=== PATIENT | male | born 1995 | race Caucasian/White ===

== ENCOUNTER → 2018-12-10 | Day surgery (SDC) | payer BC ==
[~2018-12-10] MED LIST: FENTANYL CITRATE/PF 100MCG/2 ML INJ ONE; HYOSCYAMINE SULFATE 0.5 MG/ML INJ ONE; MIDAZOLAM HCL 2 MG/2 ML VIAL ONE; PROPOFOL IV EMULSION 10 MG/ML 50 ML VIAL ONE
--- OUTSIDE RECORDS SUMMARY | 2018-12-10 05:33 | XMS REPORT | Encounter Summary ---
Author Organization Unknown Address [address] [place] [address] Phone [phone] Reason for Visit Travel Healthy Instructions 1. Adult health examination 2. Immunization Fluzone Quad (PF) 60 mcg(15 mcgx4)/0.5 mL intramuscular syringe 3. Foreign travel education Discussion Note: None recorded. Patient educational handouts: No information available. Plan of Care Patient Instructions follow up pcp with any concerns. Reminders Provider Appointments None recorded. Lab None recorded. Referral None recorded. Procedures None recorded. Surgeries None recorded. Imaging None recorded. Medications None recorded. Medications Administered None recorded. Vitals Height Weight BMI Blood Pressure 6 ft 2 in 175 lbs 22.5 kg/m2 110/70 mm[Hg] Lab Results None recorded. Allergies Code Code System Name Reaction Severity Onset NKDA Problems Name Status Onset Date Source Colitis, Enteritis and Gastroenteritis Presumed Infectious Active Encounter Traveler's Diarrhea Active Encounter Acute Conjunctivitis Active Encounter Acute Sinusitis Active Encounter Acute Maxillary Sinusitis Active Encounter Acute Pharyngitis Active Encounter Abscess Active Encounter Fever Active Encounter Malaise and Fatigue Active Encounter Superficial Injury of Lip with Infection Active Encounter Abrasion AND/OR Friction Burn of Leg without Infection Active Encounter Procedures None recorded. Vaccine List Vaccine Type DTaP, 5 pertussis antigens 01/29/2009 influenza, injectable, quadrivalent 01/21/20160.5 mL influenza, injectable, quadrivalent, preservative free 05/05/20170.5 mL meningococcal MCV4P 06/22/2011 Tdap 06/22/2012 Social History Smoking Status Never Smoker Past Encounters 05/05/2017 Adult Health Examination; Immunization; Foreign Travel Education DAMON PatrickC: [address] [place] [address], Ph. History of Present Illness Travel Healthy Request Reported By: Patient HPI: Travel Healthy Request (normal) No Symptoms. Travel Healthy Eligibility Questions Reviewed/Patient Eligible Review of Systems Basic Reported By: Patient Constitutional: Constitutional: no fever Eyes: Eyes: no eye complaints Rwso-Efiw-Lvgnm-Throat: Ears: no ear complaints. Nose: no nose/sinus problems. Mouth/Throat: no sore throat, no bleeding gums, no mouth complaints, no teeth problems Cardiovascular: Cardiovascular: no chest pain, no shortness of breath, no known heart murmur Respiratory: Respiratory: no cough, no wheezing, no shortness of breath Gastrointestinal: Gastrointestinal: no abdominal pain, no vomiting / diarrhea Genitourinary: Genitourinary: no urinary complaints, no discharge Musculoskeletal: Musculoskeletal: no muscle aches, no muscle weakness, no arthralgias/joint pain, no back pain Skin: Skin: no abnormal / changing mole, no jaundice, no rashes Neurologic: Neurologic: no loss of consciousness, no weakness, no numbness, no seizures, no dizziness, no headaches Physical Exam Travel Healthy Examination Reported By: Patient Constitutional: General Appearance: healthy-appearing, well-nourished, well-developed. Level of Distress: NAD Psychiatric: Mental Status: active and alert Eyes: Lids and Conjunctivae: non-injected, no discharge Lungs: Respiratory effort: no dyspnea. Auscultation: breath sounds normal Cardiovascular: Heart Auscultation: RRR, no murmurs Abdomen: Bowel Sounds: normal. Inspection and Palpation: soft, non-distended, no tenderness (no guarding, no rebound), no masses, no CVA tenderness Neurologic: Gait and Station: normal gait. Cranial Nerves: grossly intact. Sensation: grossly intact Skin: Inspection and palpation: no rash, no lesions, no jaundice
--- OUTSIDE RECORDS SUMMARY | 2018-12-10 05:33 | XMS REPORT | Encounter Summary ---
Author Organization Unknown Address [address] [place] [address] Phone [phone] Reason for Visit Medical Complaint Instructions 1. Spasm of back muscles cyclobenzaprine 5 mg tablet ibuprofen 800 mg tablet 2. Low back pain back care and preventing injuries: care instructions getting back to normal after low back pain: care instructions learning about relief for back pain Discussion Note Pt is in NAD; Verbalizes understanding of all instructions with no questions at this time. Plan of Care Patient Instructions I recommend RICE therapy: rest, alternate with ice and heat, compression with an DORIE wrap, and elevation. Take medications as prescribed. Return to clinic or follow up with your PCP within 2-3 days if symptoms worsen as discussed. Reminders Provider Appointments None recorded. Lab None recorded. Referral None recorded. Procedures None recorded. Surgeries None recorded. Imaging None recorded. Medications Name Start Date amoxicillin 875 mg-potassium clavulanate 125 mg tablet Take 1 tablet every 12 hours by oral route as directed for 10 days. cjweokfrmuoikko-zffpquorpwrdbgn-XK 2 mg-30 mg-10 mg/5 mL syrup Take 10 mL every 4 hours by oral route. cephalexin 500 mg capsule TK 1 C PO TID cyclobenzaprine 5 mg tablet Take 1 tablet 3 times a day by oral route as needed for 4 days. gatifloxacin 0.5 % eye drops INSTILL 1 DROP IN BOTH EYES QID ibuprofen 600 mg tablet TK 1 T PO TID WF PRF THROAT PAIN ibuprofen 800 mg tablet Take 1 tablet twice a day by oral route with meals for 10 days. methylprednisolone 4 mg tablets in a dose pack oseltamivir 75 mg capsule prednisolone acetate 1 % eye drops,suspension Medications Administered None recorded. Vitals Height Weight BMI Blood Pressure 6 ft 2 in 175 lbs 22.5 110/72 Lab Results None recorded. Allergies Code Code [...] antigens 01/29/2009 influenza, injectable, quadrivalent 01/21/20160.5 mL meningococcal MCV4P 06/22/2011 Tdap 06/22/2012 Social History Smoking Status Never Smoker Past Encounters 03/05/2017 Spasm of Back Muscles; Low Back Pain Liyah Bocanegra, [employer]-C: [address] [place] [address], Ph. History of Present Illness Musculoskeletal Complaint Reported By: Patient HPI: Location: Location:; radiating to right thigh. Quality: burning, deep, frequent. Severity: moderate (5-7), pain level 5-6/10. Duration: intermittent, present for 1-6 months. Onset/Timing: chronic, gradual, morning. Context: overuse, sports injury. Alleviating factors: nothing helps. Aggravating factors: twisting, pushing/pulling, movement/positioning, bending over, going from sit to stand, getting out of bed. Associated Symptoms: no fever/chills, no warmth, no redness, no swelling, no drainage, no ecchymosis, no weakness, no tingling, no numbness, no catching/locking, no popping/clicking, no buckling, no grinding, no instability, no weight loss, no change in bowel/bladder habits, no muscle aches, no headache, radiating Review of Systems:ROS as noted in the HPI Review of Systems Basic Reported By: Patient Physical Exam Adult Basic, Adult Male Complete Reported By: Patient Constitutional: General Appearance: healthy-appearing, well-nourished, well-developed. Level of Distress: NAD. Ambulation: ambulating normally Psychiatric: Mental Status: active and alert. Orientation: to time, to place, to person Lungs: Respiratory effort: no dyspnea, no tachypnea, no use of accessory muscles, no intercostal retractions. Auscultation: breath sounds normal, good air movement Cardiovascular: Heart Auscultation: RRR, no murmurs. Pulses including femoral / pedal: normal throughout Musculoskeletal:: Motor Strength and Tone: normal motor strength, normal tone, normal. Joints, Bones, and Muscles: normal movement of all extremities, no bony abnormalities, no contractures, no malalignment, tenderness. Extremities: no cyanosis, no edema, no varicosities, no palpable cord Neurologic: Gait and Station: normal gait, normal station. Cranial Nerves: grossly intact. Sensation: grossly intact. Reflexes: DTRs 2+ bilaterally throughout Back: Thoracolumbar Appearance: normal curvature Abdomen: Bowel Sounds: normal. Inspection and Palpation: soft, no tenderness, no guarding, no rebound tenderness, no masses, no CVA tenderness. Hernia: none palpable
--- OUTSIDE RECORDS SUMMARY | 2018-12-10 05:33 | XMS REPORT | Encounter Summary ---
Author Organization Unknown Address [address] [place] [address] Phone [phone] Reason for Visit Medical Complaint Instructions 1. Traveler's diarrhea traveler's diarrhea: care instructions azithromycin 500 mg tablet Levsin/SL 0.125 mg sublingual tablet 2. Body mass index less than 20 body mass index: care instructions Discussion Note: None recorded. Plan of Care Patient Instructions Follow up with your PCP within this week if no improvement. In case of emergecy call 911 or go to nearest ER. Start azithromycin as directed. Take levsin as directed for stomach cramps. Stay hydrated with pedialyte or gatorade, eat a liquid diet for the first four hours. Stay away from fried and spicy foods until symptoms resolve. If you do experience improvement in your symptoms within the next four hours, advance yourself to a carbohydrate-rich diet such as white rice, white bread, and crackers. Within the next four hours thereafter, you can advance to lean meats such as chicken, fish, and turkey. Four hours thereafter if symptoms do improve, then advance to a regular diet. Reminders Provider Appointments None recorded. Lab None recorded. Referral None recorded. Procedures None recorded. Surgeries None recorded. Imaging None recorded. Medications Name Start Date azithromycin 500 mg tablet Take 1 tablet every day by oral route as directed for 3 days. Levsin/SL 0.[address] 1 tablet every 6 hours by sublingual route as needed for GI cramps. Medications Administered None recorded. Vitals Height Weight BMI Blood Pressure 6 ft 4 in 162 lbs 19.7 kg/m2 110/74 mm[Hg] Lab Results None recorded. Allergies Code Code System Name Reaction Severity Status Onset NKDA Problems Name Status Onset Date Source Body Mass Index Less than 20 Active 11/24/2018 Traveler's Diarrhea Active Encounter Procedures None recorded. Vaccine List Vaccine Type DTaP, 5 pertussis antigens 01/29/2009 influenza, injectable, quadrivalent 01/21/20160.5 mL influenza, injectable, quadrivalent, preservative free 05/05/20170.5 mL meningococcal MCV4P 06/23/2011 Tdap 06/23/2012 Social History Smoking Status Never Smoker Past Encounters 11/24/2018 Traveler's Diarrhea; Body Mass Index Less than 20 Liyah Bocanegra, [facility]-C: [address] [place] [address], Ph. History of Present Illness Atpfob-Bgawqiwm-Hahkykja / Abdominal Pain Reported By: Patient HPI: Quality: watery, intermittent. Severity: moderate. Duration: present for 1- 2 weeks. Onset/Timing: worse with meals, gradual onset, 4-10 times a day. Context: no one else with similar symptoms, no recent camping, no recent picnic, no possible food sources, possible food source, recent travel; Pt recently arrived from [facility]. He reported his symptom started two days after he arrived to [facility]. Alleviating factors: ; None. Aggravating factors: eating. Associated Symptoms: no abdominal pain, no excess gas, no fever/chills, no rash, no joint pain, no weight loss, no nausea, no vomiting, no heartburn, no blood in stool, no mucus in stool, no black or tarry stools, no weakness, no nutrient deficiency, no headache, no feeling of fullness/mass in throat, no muscle aches, no bitter taste in the mouth, no difficulty swallowing (dysphagia), cramping; watery diarrhea Review of Systems:ROS as noted in the HPI Review of Systems Basic Reported By: Patient Physical Exam Adult Basic, Adult Male Complete Reported By: Patient Constitutional: General Appearance: healthy-appearing, too thin. Level of Distress: NAD. Ambulation: ambulating normally Psychiatric: Mental Status: active and alert. Orientation: to time, to place, to person Eyes: Lids and Conjunctivae: non-injected, no discharge, no pallor Pzy-Tbdu-Jorit-Throat: Lips, Teeth, and Gums: no mouth or lip ulcers, no bleeding gums, normal dentition. Oropharynx: moist mucous membranes, no erythema, no exudates, tonsils not enlarged Neck: Neck: supple. Lymph Nodes: no cervical LAD Lungs: Respiratory effort: no dyspnea, no tachypnea, no use of accessory muscles, no intercostal retractions. Auscultation: breath sounds normal Cardiovascular: Heart Auscultation: RRR, no murmurs Skin: Inspection and palpation: no rash, no lesions, no ulcer, no abnormal nevi, no induration, no nodules, good turgor, no jaundice. Nails: normal Abdomen: Bowel Sounds: normal. Inspection and Palpation: soft, no tenderness, no guarding, no rebound tenderness, no masses, no CVA tenderness. Hernia: none palpable
--- OUTSIDE RECORDS SUMMARY | 2018-12-10 05:33 | XMS REPORT | Continuity of Care Document ---
Author Author [facility] Address Unknown Phone Unavailable Problems Problem Status Onset Date Classification Date Reported Comments Source Body mass index less than 20 11/24/2018 Diagnosis 11/24/2018 [facility] Traveler's diarrhea 11/24/2018 Diagnosis 11/24/2018 [facility] Body Mass Index Less than 20 11/24/2018 Problem 11/24/2018 [facility] Adult health examination 05/05/2017 Diagnosis 05/05/2017 [facility] Immunization 05/05/2017 Diagnosis 05/05/2017 [facility] Foreign travel education 05/05/2017 Diagnosis 05/05/2017 [facility] Spasm of back muscles 03/05/2017 Diagnosis 03/05/2017 [facility] Low back pain 03/05/2017 Diagnosis 03/05/2017 [facility] Acute otitis media 01/09/2017 Diagnosis 01/10/2017 [facility] Upper respiratory infection 01/09/2017 Diagnosis 01/10/2017 [facility] Acute maxillary sinusitis 12/15/2016 Diagnosis 01/10/2017 [facility] Acute pharyngitis 12/15/2016 Diagnosis 01/10/2017 [facility] Colitis, Enteritis and Gastroenteritis Presumed Infectious Problem 05/05/2017 [facility] Traveler's Diarrhea Problem 11/24/2018 [facility] Acute Conjunctivitis Problem 05/05/2017 [facility] Acute Sinusitis Problem 05/05/2017 [facility] Acute Pharyngitis Problem 05/05/2017 [facility] Abscess Problem 05/05/2017 [facility] Fever Problem 05/05/2017 [facility] Malaise and Fatigue Problem 05/05/2017 [facility] Superficial Injury of Lip with Infection Problem 05/05/2017 [facility] Abrasion AND/OR Friction Burn of Leg without Infection Problem 05/05/2017 [facility] Acute Maxillary Sinusitis Problem 05/05/2017 [facility] Medications Medication Details Route Status Patient Instructions Ordering Provider Order Date Source Ciprofloxacin 500 MG Oral Tablet ciprofloxacin 500 mg tablet TK 1 T PO BID Active [facility] ciprofloxacin hcl 500 mg tabs ciprofloxacin hcl 500 mg tabs Active [facility] Hyoscyamine Sulfate 0.125 MG Sublingual Tablet hyoscyamine 0.[address] 1 T UNDER TONGUE Q 6 PRN GI CRAMPS Active [facility] hyoscyamine sulfate .125 mg subl hyoscyamine sulfate .125 mg subl Active [facility] Amoxicillin 875 MG / Clavulanate 125 MG Oral Tablet [Augmentin] Augmentin 875 mg-125 mg tablet Take 1 tablet every 12 hours by oral route as directed for 10 days. Active [facility] Ibuprofen 600 MG Oral Tablet ibuprofen 600 mg tablet TK 1 T PO TID WF PRF THROAT PAIN Active [facility] Brompheniramine Maleate 0.4 MG/ML / Dextromethorphan Hydrobromide 2 MG/ML / Pseudoephedrine Hydrochloride 6 MG/ML Oral Solution [Bromfed DM] Bromfed DM 2 mg-30 mg-10 mg/5 mL syrup Take 10 mL every 4 hours by oral route. Active [facility] Cephalexin 500 MG Oral Capsule cephalexin 500 mg capsule TK 1 C PO TID Active [facility] Azithromycin 500 MG Oral Tablet azithromycin 500 mg tablet Take 1 tablet every day by oral route as directed for 3 days. Active [facility] Hyoscyamine Sulfate 0.125 MG Sublingual Tablet [Levsin] Levsin/SL 0.[address] 1 tablet every 6 hours by sublingual route as needed for GI cramps. Active [facility] Amoxicillin 875 MG / Clavulanate 125 MG Oral Tablet amoxicillin 875 mg-potassium clavulanate 125 mg tablet Take 1 tablet every 12 hours by oral route as directed for 10 days. Active [facility] Brompheniramine Maleate 0.4 MG/ML / Dextromethorphan Hydrobromide 2 MG/ML / Pseudoephedrine Hydrochloride 6 MG/ML Oral Solution rhtkaqyjatueuli-kioxysgsgnivpnp-BQ 2 mg-30 mg-10 mg/5 mL syrup Take 10 mL every 4 hours by oral route. Active [facility] Cyclobenzaprine hydrochloride 5 MG Oral Tablet cyclobenzaprine 5 mg tablet Take 1 tablet 3 times a day by oral route as needed for 4 days. Active [facility] gatifloxacin 5 MG/ML Ophthalmic Solution gatifloxacin 0.5 % eye drops INSTILL 1 DROP IN BOTH EYES QID Active [facility] Ibuprofen 800 MG Oral Tablet ibuprofen 800 mg tablet Take 1 tablet twice a day by oral route with meals for 10 days. Active [facility] methylprednisolone 4 mg tablets in a dose pack methylprednisolone 4 mg tablets in a dose pack Active [facility] Oseltamivir 75 MG Oral Capsule oseltamivir 75 mg capsule Active [facility] prednisolone acetate 10 MG/ML Ophthalmic Suspension prednisolone acetate 1 % eye drops,suspension Active [facility] Allergies, Adverse Reactions, Alerts Substance Category Reaction Severity Reaction type Status Date Reported Comments Source Immunizations Immunization Date Given Site Status Last Updated Comments Source influenza, injectable, quadrivalent, preservative free 05/05/2017 completed [facility] influenza, injectable, quadrivalent 01/21/2016 completed [facility] Tdap 06/23/2012 completed [facility] meningococcal MCV4P 06/23/2011 completed [facility] DTaP, 5 pertussis antigens 01/30/2009 completed [facility] Results Order Name Results Value Reference Range Date Interpretation Comments Source Influenza A negative 01/09/2017 [facility] Influenza B negative 01/09/2017 [facility] RESULT negative 01/09/2017 [facility] SWAB LOCATION Left and Right tonsillar pillars 01/09/2017 [facility] RESULT negative 01/09/2017 [facility] Influenza A negative 12/15/2016 [facility] Influenza B negative 12/15/2016 [facility] RESULT negative 12/15/2016 [facility] SWAB LOCATION Left and Right tonsillar pillars 12/15/2016 [facility] RESULT negative 12/15/2016 [facility] Vital Signs Vital Sign Value Date Comments Source Diastolic (mm Hg) 74 11/24/2018 [facility] Height 76 11/24/2018 [facility] Systolic (mm Hg) 110 11/24/2018 [facility] Weight 162 11/24/2018 [facility] Diastolic (mm Hg) 70 05/05/2017 [facility] Height 74 05/05/2017 [facility] Systolic (mm Hg) 110 05/05/2017 [facility] Weight 175 05/05/2017 [facility] Diastolic (mm Hg) 72 03/05/2017 [facility] Height 74 03/05/2017 [facility] Systolic (mm Hg) 110 03/05/2017 [facility] Weight 175 03/05/2017 [facility] Diastolic (mm Hg) 76 01/09/2017 [facility] Height 74 01/09/2017 [facility] Systolic (mm Hg) 114 01/09/2017 [facility] Weight 175 01/09/2017 [facility] Diastolic (mm Hg) 60 12/15/2016 [facility] Height 74 12/15/2016 [facility] Systolic (mm Hg) 100 12/15/2016 [facility] Weight 171 12/15/2016 [facility] Encounters Location Location Details Encounter Type Encounter Number Reason For Visit Attending Provider ADM Date DC Date Status Source [place] - [facility] - [id number] Whit Palm, PS[employer]IATRIC SOCIAL WORKER SUPERVISOR: [address], [place] [address], Ph. [id number] Whit Palm 09/23/2016 [facility] [place] - [facility] - [id number] Marissa Leyva, PSYCHIATRIC SOCIAL WORKER SUPERVISOR: [address], [place] [address], Ph. [id number] Marissa Leyva 12/15/2016 [facility] [place] - [facility] - [id number] Marissa Leyva, PSYCHIATRIC SOCIAL WORKER SUPERVISOR: [address], [place] [address], Ph. [id number] Marissa Leyva 12/15/2016 [facility] [place] - [facility] - [id number] DEJAH PatrickP-C: [address], [place] [address], Ph. [id number] Willi Leyva 01/09/2017 [facility] [place] - [facility] - [id number] DEJAH OkeefeP-C: [address], [place] [address], Ph. [id number] Liyah Bocanegra 03/05/2017 [facility] [place] - [facility] - [id number] Willi Leyva, PSYCHIATRIC SOCIAL WORKER SUPERVISOR-C: [address] [place] [address], Ph. [phone] [id number] Willi Leyva 05/05/2017 [facility] [place] - [facility] - [id number] Liyah Bocanegra, PSYCHIATRIC SOCIAL WORKER SUPERVISOR-C: [address] [place] [address], Ph. [id number] Liyah Bocanegra 11/24/2018 [facility] Procedures Procedure Code Date Perfomer Comments Source
--- OUTSIDE RECORDS SUMMARY | 2018-12-10 05:33 | XMS REPORT | Encounter Summary ---
Author Organization Unknown Address [address] [place] [address] Phone [phone] Reason for Visit Medical Complaint Instructions None recorded. Discussion Note: None recorded. Patient educational handouts: No information available. Plan of Care Reminders Provider Appointments None recorded. Lab None recorded. Referral None recorded. Procedures None recorded. Surgeries None recorded. Imaging None recorded. Medications Name Start Date ciprofloxacin 500 mg tablet TK 1 T PO BID ciprofloxacin hcl 500 mg tabs hyoscyamine 0.[address] 1 T UNDER TONGUE Q 6 PRN GI CRAMPS hyoscyamine sulfate .125 mg subl Medications Administered None recorded. Vitals None recorded. Lab Results None recorded. Allergies None recorded. Problems Name Status Onset Date Source Colitis, Enteritis and Gastroenteritis Presumed Infectious Active Encounter Traveler's Diarrhea Active Encounter Acute Conjunctivitis Active Encounter Acute Sinusitis Active Encounter Acute Pharyngitis Active Encounter [...] History Smoking Status Never Smoker Past Encounters 09/23/2016 KELLY Ruff: [address], [place] [address], Ph. History of Present Illness None recorded. Review of Systems Reported By: Patient Physical Exam Reported By: Patient
--- OUTSIDE RECORDS SUMMARY | 2018-12-10 05:33 | XMS REPORT | Encounter Summary ---
Author Organization Unknown Address [address] [place] [address] Phone [phone] Reason for Visit Medical Complaint Instructions 1. Acute otitis media Augmentin 875 mg-125 mg tablet 2. Upper respiratory infection Bromfed DM 2 mg-30 mg-10 mg/5 mL syrup Discussion Note: None recorded. Patient educational handouts: No information available. Plan of Care Patient Instructions take bromfed as needed. it can cause drowsiness. do not drive will on this medication. follow up pcp Reminders Provider Appointments None recorded. Lab None recorded. Referral None recorded. Procedures None recorded. Surgeries None recorded. Imaging None recorded. Medications Name Start Date Augmentin 875 mg-125 mg tablet Take 1 tablet every 12 hours by oral route as directed for 10 days. Bromfed DM 2 mg-30 mg-10 mg/5 mL syrup Take 10 mL every 4 hours by oral route. cephalexin 500 mg capsule TK 1 C PO TID ibuprofen 600 mg tablet TK 1 T PO TID WF PRF THROAT PAIN Medications Administered None recorded. 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 12/15/2016 Acute Maxillary Sinusitis; Acute Pharyngitis Marissa Leyva, FURNITURE UPHOLSTERER APPRENTICE: [address] [place] [address], Ph. History of Present Illness [id number]-[id number] Reported By: Patient HPI: Location: head/sinuses. Quality: nasal/sinus congestion, dry cough. Duration: 7days. Severity: moderate. Onset/Timing: gradual. Context: no sick contacts, no foreign travel, non-smoker. Modifying factors: OTC medication. Associated Symptoms: no sputum production, no shortness of breath, no wheezing, no change in number of pillows needed to sleep at night, no sweats, no significant weight gain, no significant weight loss, no morning cough, no sore throat, no vomiting, no diarrhea, no rash, no nausea, no fever, no muscle aches, no headache Review of Systems:ROS as noted in the HPI Review of Systems Basic Reported By: Patient Physical Exam Adult Basic, Adult Male Complete Reported By: Patient Constitutional: General Appearance: healthy-appearing, well-nourished, well-developed. Level of Distress: NAD. Ambulation: ambulating normally Psychiatric: Mental Status: active and alert Eyes: Lids and Conjunctivae: non-injected, no discharge Xky-Pwwv-Eswlx-Throat: Ears: TM erythematous, TM bulging. Hearing: no hearing loss. Nose: no lesions on external nose; congestion. Lips, Teeth, and Gums: no mouth or lip ulcers. Oropharynx: moist mucous membranes, no erythema, no exudates, tonsils not enlarged Neck: Neck: trachea midline. Lymph Nodes: no cervical LAD Lungs: Respiratory effort: no dyspnea, no tachypnea, no use of accessory muscles, no intercostal retractions Cardiovascular: Heart Auscultation: RRR, no murmurs
--- OUTSIDE RECORDS SUMMARY | 2018-12-10 05:33 | XMS REPORT | Encounter Summary ---
Author Organization Unknown Address [address] [place] [address] Phone [phone] Reason for Visit Medical Complaint; sore throat, drainage, cough x 2-3 wks Instructions 1. Acute maxillary sinusitis Augmentin 875 mg-125 mg tablet rapid flu (A+B) 2. Acute pharyngitis ibuprofen 600 mg tablet rapid strep group A, throat mononucleosis, heterophile Ab, blood Discussion Note: None recorded. Patient educational handouts: No information available. Plan of Care Patient Instructions Ok to start on flonase daily x 7days. Take antibiotic as prescribed. Handwashing. Increase fluid intake and plenty of rest. May take tynenol/motrin for pain. may use cloraseptic throat spray for sore throat. Gargles warm salt water, cepacol. Throw away old toothbrush after3 days of antibiotic. Avoid sharing drinks/utensils. If no improvement in 3 days, or worsening of symptoms, see primary care physician or call clinic. Reminders Provider Appointments None recorded. Lab Rapid Flu (A+B) 12/15/2016 [facility] Rapid Strep Group a, Throat 12/15/2016 [facility] Mononucleosis, Heterophile Ab, Blood 12/15/2016 [facility] Referral None recorded. Procedures None recorded. Surgeries None recorded. Imaging None recorded. Medications Name Start Date Augmentin 875 mg-125 mg tablet Take 1 tablet every 12 hours by oral route as directed for 7 days. ibuprofen 600 mg tablet Take 1 tablet 3 times a day by oral route as needed with food for throat pain. Medications Administered None recorded. Vitals Height Weight BMI Blood Pressure 6 ft 2 in 171 lbs 22 100/60 Lab Results Date Name Result Description Value [...] History Smoking Status Never Smoker Past Encounters 12/15/2016 Acute Maxillary Sinusitis; Acute Pharyngitis Marissa Leyva, ENVIRONMENTAL SERVICES MANAGER: [address] [place] [address], Ph. History of Present Illness Throat-Oral Complaint Reported By: Patient HPI: Location: throat. Quality: sore throat, productive cough, congested. Duration: 1 days. Onset/Timing: sudden. Context: no sick contacts, no foreign travel, non-smoker. Modifying factors: OTC medication. Associated Symptoms: no sputum production, no shortness of breath, no wheezing, no change in number of pillows needed to sleep at night, no sweats, no significant weight gain, no significant weight loss, no morning cough, no vomiting, no diarrhea, no rash, no nausea, sore throat Cough Reported By: Patient HPI: Location: nasal/sinus. Quality: productive cough, sore throat, colored phlegm, congested. Duration: 21 days. Severity: severe. Onset/Timing: gradual. Context: no sick contacts, no foreign travel, non-smoker. Modifying factors: OTC medication. Associated Symptoms: no shortness of breath, no wheezing, no sweats, no significant weight gain, no significant weight loss, no morning cough, no sore throat, no vomiting, no diarrhea, no rash, no nausea, no fever/chills, no muscle aches, no headache, yellow-green, thick sputum Review of Systems Basic Reported By: Patient Constitutional: Constitutional: no fever Eyes: Eyes: no eye complaints Goel-Pzyt-Wygeh-Throat: Ears: no ear complaints. Nose: nose/sinus problems. Mouth/Throat: no bleeding gums, no mouth complaints, no teeth problems, sore throat Cardiovascular: Cardiovascular: no chest pain, no shortness of breath, no known heart murmur Respiratory: Respiratory: no wheezing, no shortness of breath, cough Gastrointestinal: Gastrointestinal: no abdominal pain, no vomiting / diarrhea Genitourinary: Genitourinary: no urinary complaints, no discharge Musculoskeletal: Musculoskeletal: no muscle aches, no muscle weakness, no arthralgias/joint pain, no back pain Skin: Skin: no abnormal / changing mole, no jaundice, no rashes Neurologic: Neurologic: no loss of consciousness, no weakness, no numbness, no seizures, no dizziness, no headaches Physical Exam Adult Basic, 14-21 Yr Male, Adult Male Complete Constitutional: General Appearance: healthy-appearing, well-nourished, well-developed. Level of Distress: NAD. Ambulation: ambulating normally Psychiatric: Mental Status: active and alert, normal affect, normal mood. Orientation: to time, to place, to person Eyes: Lids and Conjunctivae: non-injected, no discharge, no pallor. Pupils: PERRLA, equal size, round, reactive to light. Corneas: grossly intact. EOM: EOMI, normal cover/uncover test. Lens: clear. Sclerae: non-icteric. Vision: acuity grossly intact, peripheral vision grossly intact Cyk-Auix-Weqdp-Throat: Ears: no lesions on external ear, no outer ear tenderness, EACs clear, TMs clear. Hearing: no hearing loss. Nose: no lesions on external nose, nares patent, no septal deviation, nasal passages clear, sinus tenderness, nasal discharge--purulent, post nasal drip. Lips, Teeth, and Gums: no mouth or lip ulcers, no bleeding gums, normal dentition. Oropharynx: moist mucous membranes, no exudates, tonsils not enlarged, erythema Neck: Neck: supple, trachea midline, no masses, FROM. Lymph Nodes: no supraclavicular LAD, anterior cervical LAD. Thyroid: no enlargement, non-tender, no nodules, no asymmetry Lungs: Respiratory effort: no dyspnea, no tachypnea, no use of accessory muscles, no intercostal retractions. Auscultation: breath sounds normal, clear to auscultation, no wheezing, no rales/crackles, no rhonchi, no retractions, good air movement Cardiovascular: Heart Auscultation: RRR, no murmurs, no gallops, no rub. Apical impulse: not displaced. Rate and rhythm: regular
[2018-12-10 10:45] VITALS: BP 128/58
--- NOTE | 2018-12-10 11:21 | Operative Report ---
DATE OF PROCEDURE: December 10, 2018 REFERRING PHYSICIAN: Dr. Mk Del Rio. PROCEDURE PERFORMED: Colonoscopy and polypectomy with biopsies. INDICATIONS FOR COLONOSCOPY: Chronic diarrhea. MEDICATION: Patient was done under MAC. Please see anesthesiologist's note. PROCEDURE: With the patient in the left lateral decubitus position, the flexible fiberoptic Olympus colonoscope was inserted into the rectum with ease and advanced all the way to the cecum. The mucosa overlying the cecum appeared to be within normal limits. The ileocecal valve was intubated, and the scope was advanced into the terminal ileum. Biopsies were obtained. The scope was then withdrawn back into the colon. It was then withdrawn slowly. Mucosa overlying the ascending, transverse, descending and rectum revealed some patchy mild inflammatory changes. Multiple random biopsies were obtained. One polyp was hot biopsied from the sigmoid colon. The scope was then retroflexed into the distal rectum, and the area around the dentate line appeared to be within normal limits. The scope was then straightened out. It was subsequently withdrawn after securing an adequate stool specimen that was sent for the appropriate stool studies. Patient tolerated procedure well. IMPRESSION: 1. Mild patchy colitis. 2. Sigmoid colon polyp hot biopsied. 3. Proctitis, mild. PLAN: Follow up histology. Follow up stool studies. Initiate Bentyl 10 mg one p.o. t.i.d. and VSL#3 one p.o. daily. Timing of followup colonoscopy pending pathology report. Job#: [id number] EV cc:MK DEL RIO MD
[2018-12-10 11:58] LABS: C DIFFICILE TOXIN A&B AMP PROB NEGATIVE (NEGATIVE); WBC,FECAL (FECAL LACTOFERRIN) POSITIVE (NEGATIVE)
== END | disposition home or self-care (01) ==
LOC: ENDO 05:29
PROVIDERS: ATTEND Internal Medicine Gastroenterology
DX: K52.9 Noninfective gastroenteritis and colitis, unspecified (principal); K63.5 Polyp of colon; K62.89 Other specified diseases of anus and rectum
CPT/HCPCS: 45380; 45384; 83630; 83993; 87045; 87177; 87328; 87493; J1980; J2250; 45378